=== PATIENT | female | born 1980 | race Caucasian/White ===

== ENCOUNTER → 2017-10-12 09:20 | Outpatient (CLI) | payer OTHER, SELFPAY ==
--- NOTE | 2017-10-12 | DI.MRI.S_ITS ---
PROCEDURE: MR HIP LT W CON INDICATIONS: pain in lower back and hip. TECHNIQUE: After the administration of 10 mL of dilute intra-articular Gadolinium contrast, coronal STIR of the bony pelvis; coronal and oblique axial T1 spin echo with fat saturation, axial T2 fast spin echo with fat saturation, sagittal T1 spin echo with and without fat saturation of the involved hip. COMPARISON: [facility], CR, [id number] W PEL IF PERFORMED, 09/18/2016, 15:49. FINDINGS: Image quality: Excellent. Bones and joints: Bone marrow of the pelvic ring and proximal femurs show normal signal throughout. No intraosseous lesions or fractures. No avascular necrosis of the femoral head. The visualized lower lumbar spine appears normally aligned. The ligamental, neck, and labral plicae appear normal where visualized. Tendons and ligaments: The gluteus medius and minimus tendons appear intact, without associated muscle atrophy. The nearby proximal iliotibial band also appears intact. The iliopsoas tendon appears intact, without adjacent bursal fluid collections or evidence for impingement syndrome. The origin of the hamstring tendon is intact at the ischial tuberosity, as well as the associated sacrotuberous ligament. The straight and reflected heads of the rectus femoris muscle origin appear intact, as well as the conjoint tendon. The ligamentum teres appears intact where visualized. Labrum and cartilage: The acetabular labrum appears intact throughout. Cartilage surface of the femoral head appears of normal thickness. No paralabral cysts. The alpha angle of the femur is within normal limits at less than 55 degrees. Soft tissues: Visualized muscles demonstrate normal bulk and internal signal. Quadratus femoris muscle demonstrates no internal edema to suggest ischiofemoral impingement. The proximal sciatic neurovascular bundle appears normal adjacent to the hamstring tendons. No free pelvic fluid. Bladder wall thickness is normal. Genitourinary structures and bowel loops appear normal where visualized. IMPRESSION: Negative examination. No internal derangement. Dictated by: Ra Chisholm M.D. on 10/12/2017 at 11:22 Approved by: Ra Chisholm M.D. on 10/12/2017 at 11:38
--- NOTE | 2017-10-12 | DI.RAD.S_ITS ---
PROCEDURE: FL HIP INJECTION MR/CT LT INDICATIONS: HIP PAIN TECHNIQUE: The indications, alternatives, benefits, risks, and complications of the procedure were explained to the patient. Written informed consent was obtained and placed in the chart. The hip was examined fluoroscopically with the legs fixed in slight internal rotation, and a site for needle placement chosen for entry into the hip joint from an anterior approach. Care was taken to locate the common femoral artery and vein beforehand. The skin was prepped and draped in a sterile fashion, and 1% Lidocaine infiltrated from skin down to joint capsule. A spinal needle was inserted into the joint, and a small amount of iodinated contrast media injected to confirm intra-articular placement of the needle tip. This was followed by approximately 15 mL dilute solution of a gadolinium containing MR contrast agent. The needle was removed and a dressing was applied. The patient was given postprocedural instructions and sent to the MR suite for imaging. FINDINGS: A single fluoroscopic spot image demonstrates intra-articular location of injected iodinated contrast. IMPRESSION: Successful fluoroscopically guided administration of dilute Gadolinium solution into the hip joint for MR arthrogram. Dictated by: Rl Singh M.D. on 10/12/2017 at 10:28 Approved by: Rl Singh M.D. on 10/12/2017 at 10:28
== END ==
PROVIDERS: PCP Nurse Practitioner; Visit Provider Family Medicine
DX: M25.552 Pain in left hip (principal); M54.5 Low back pain
CPT/HCPCS: 27093; 73722; 77002

== ENCOUNTER → 2018-06-02 09:09 | Outpatient (CLI) | payer OTHER, SELFPAY ==
--- NOTE | 2018-06-02 09:10 | DI.US.S_ITS ---
PROCEDURE: US PELVIC COMPLETE INDICATIONS: BLEEDING, FIBROIDS? TECHNIQUE: Real-time scanning was performed of the pelvic organs, with image documentation. Additional endovaginal scanning was necessary due to incomplete visualization of the adnexal and endometrial structures by transabdominal scanning. COMPARISON: [facility], US, PELVIC COMPLETE, 08/28/2014, 7:39. FINDINGS: Transabdominal scanning: Limited scanning through the kidneys shows no hydronephrosis. No pathologic free abdominal or pelvic fluid. Endovaginal scanning: Uterus: Uterus is normal in size at 7.1 x 4.5 x 5.3 cm. The endometrium measures 7 mm in combined thickness. Incidental note of nonspecific, tiny echogenic foci within the endometrial margin. Ovaries: The left ovary is normal and measures 3.3 x 1.5 x 1.8 cm. The right ovary measures 3.9 x 2.5 x 2.1 cm. There is a 2.3 cm hypoechoic focus within the right ovary with a few thin internal septations and echogenic debris as well as mild peripheral vascularity. This is compatible with a corpus luteal cyst. IMPRESSION: Incidental note of a 2.3 cm right corpus luteal cyst. No sonographic abnormalities identified to explain history of abnormal vaginal bleeding. No uterine fibroids identified. No acute sonographic abnormalities. Dictated by: Jayson Sherman M.D. on 06/02/2018 at 12:33 Approved by: Jayson Sherman M.D. on 06/02/2018 at 12:41
== END ==
PROVIDERS: PCP Family Medicine; Visit Provider Family Medicine
DX: N93.9 Abnormal uterine and vaginal bleeding, unspecified (principal); N83.11 Corpus luteum cyst of right ovary
CPT/HCPCS: 76856